=== PATIENT | male | born 1985 | race Two or more races ===

== ENCOUNTER 2023-01-20 13:03 | Outpatient (AMB) | payer BC, SELFPAY ==
--- NOTE | 2023-01-20 13:05 | A.OFFVIS_ITS ---
Intake Vital Signs 01/20/23 13:21 BP 130/78 Blood Pressure Location Lt radial Position Sitting Pulse 81 Pulse Source Pulse Oximeter Pulse Oximetry (%) 98 Oxygen Delivery Method Room Air Intake Visit Reasons: MAT Intake Intake Note: the patient is here as a mat intake Recruiter Required: No Allergies No Known Allergies Allergy (Verified 01/20/23 13:47) Do you need a note to return to daycare/school/sports/work: No HPI MAT Intake HPI Details Patient presents for intake and evaluation micodose induction six months ago from methadone 50mg 5 years on methadone Current suboxone dose 12mg BID Doing well with current suboxone dose No longer feeling lethargic Denies any side effects including constipation Recently moved here from [place] 2-3 weeks ago Living in [place] 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 Lives with partner and 2 pets In recovery for 6 years All other substances for 2 years Substance use history -Age 20 broke his arm and prescribed percocet -then began to misuse -sophomore year in college transitioned to morphine then to heroin -IVDU and freebasing -no overdose -no history of ATS admissions -no history of medical admissions related to Family History: father with AUD Medical History 0tonsillectomy broken skaphoid 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 No medications Borderline Personality Disorder Intermittent explosive disorder as a teenager therapy in methadone no medications no BH admissions last therapy visit 2 months ago Review of Systems Const Reports as per HPI and Reports no additional complaints Physical Exam Vital Signs: Last Vital Signs Pulse 81 01/20/23 13:21 BP 130/78 01/20/23 13:21 Pulse Ox 98 01/20/23 13:21 Oxygen Delivery Method Room Air 01/20/23 13:21 Const General: cooperative, healthy appearing and no acute distress Psych Appearance: grossly normal and well kempt Attitude: cooperative Thought process: Normal thought process present Thought content: Normal thought content present Insight: Good insight present (Psych) Judgement: Good judgement present (Psych) Results AMB 14 Panel Urine Drug Screen Urine Marijuana (THC) Negative Last Edit by Chastity Gordon CMA on 01/20/23 14:01 Urine Cocaine Negative Last Edit by Chastity Gordon CMA on 01/20/23 14:01 Urine Morphine Negative Last Edit by Chastity Gordon CMA on 01/20/23 14:01 Urine Methamphetamine Negative Last Edit by Chastity Gordon CMA on 01/20/23 14:01 Urine Amphetamine Negative Last Edit by Chastity Gordon CMA on 01/20/23 14:0 1 Urine Benzodiazepine Negative Last Edit by Chastity Gordon CMA on 01/20/23 14:01 Urine Barbiturates Negative Last Edit by Chastity Gordon CMA on 01/20/23 14: 01 Urine Methadone Negative Last Edit by Chastity Gordon CMA on 01/20/23 14:01 Urine Buprenorphine Positive Last Edit by Chastity Gordon CMA on 01/20/23 14 :01 Urine Tricyclic Antidepressant Negative Last Edit by Chastity Gordon CMA on 01/20/23 14:01 Urine MDMA Negative Last Edit by Chastity Gordon CMA on 01/20/23 14:01 Urine Oxycodone Negative Last Edit by Chastity Gordon CMA on 01/20/23 14:01 Urine Phencyclidine Negative Last Edit by Chastity Gordon CMA on 01/20/23 14 :01 Urine Propoxyphene Negative Last Edit by Chastity Gordon CMA on 01/20/23 14: 01 Results Reviewed Results Reviewed: Laboratory Last Values POC Urine Buprenorphine Positive 01/20/23 13:59 POC Urine Morphine Negative 01/20/23 13:59 POC Urine Oxycodone Negative 01/20/23 13:59 POC Urine Methadone Negative 01/20/23 13:59 POC Urine Propoxyphene Negative 01/20/23 13:59 POC Urine Barbiturates Negative 01/20/23 13:59 POC U Tricyclic Antidpr Negative 01/20/23 13:59 POC Urine PCP Negative 01/20/23 13:59 POC Ur Amphetamines Negative 01/20/23 13:59 POC Ur Methamphetamine Negative 01/20/23 13:59 POC Urine MDMA Negative 01/20/23 13:59 POC Ur Benzodiazepine Negative 01/20/23 13:59 POC Urine Cocaine Negative 01/20/23 13:59 POC Ur Marijuana (THC) Negative 01/20/23 13:59 Assessment & Plan Assessment & Plan (1) Other nursing home (current) drug therapy: Code(s): Z79.899 - Other long term care phlebotomist (current) drug therapy (2) Opioid use disorder, severe, in sustained remission: Code(s): F1. - Opioid dependence, in remission Plan: * Continue Suboxone at 12 mg b.i.d. * Labs ordered * Patient to follow-up 1 week Orders: Orders Comprehensive Met. Panel Today - Opioid dependence, in remission, Z79.899 - Other nursing home (current) drug therapy HIV Ab/Ag Today - Opioid dependence, in remission, Z79.899 - Other nursing home (current) drug therapy Hepatitis A,B,C Profile Today - Opioid dependence, in remission, Z79.899 - Other long term care phlebotomist (current) drug therapy AMB 14 Panel Urine Drug Screen 01/20/23 Z51.81 - Encounter for therapeutic drug level monitoring Medications: New buprenorphine-naloxone 12-3 mg (Suboxone) 1 film sublingual BID 15 ea 0RF Coding Level of Care Code New Pt Level 4 (95828) Diagnoses Other nursing home (current) drug therapy Z79.899 Opioid use disorder, severe, in sustained remission
[2023-01-20 13:21] VITALS: BP 130/78; PULSE 81; O2SAT 98
== END 2023-01-20 13:54 | disposition home or self-care (01) ==
LOC: HO.HCC 13:03
PROVIDERS: Visit Provider Nurse Practitioner Psychiatric/Mental Health
DX: F11.21 Opioid dependence, in remission (principal); Z79.899 Other long term (current) drug therapy
CPT/HCPCS: 99204

== ENCOUNTER → 2023-01-20 13:03 | Outpatient (BNVA) | payer BC, SELFPAY | PROVIDERS: Visit Provider Nurse Practitioner Psychiatric/Mental Health | DX: F11.20 Opioid dependence, uncomplicated (principal) | CPT/HCPCS: 80305 ==

== ENCOUNTER 2023-01-27 14:27 | Outpatient (REF) | payer BC, SELFPAY ==
[2023-01-27 15:49] LABS: Alanine Aminotransferase 35 U/L (0-40); Alkaline Phosphatase 71 U/L (39-117); Anion Gap 11 (12-20); Aspartate Amino Transferase 23 U/L (5-37); Bilirubin Total 0.4 mg/dL (0.0-1.0); Blood Urea Nitrogen 15 mg/dL (9-16); Calcium 10.2 mg/dL (8.4-10.2); Carbon Dioxide 27 mmol/L (22-29); Chloride 104 mmol/L (96-108); Estimated Glomerular Filt Rate > 60; Glucose Random 76 mg/dL (60-115); Potassium 4.1 mmol/L (3.3-5.1); Sodium 138 mmol/L (135-145); Total Protein 8.1 g/dL (6.5-8.0)
[2023-01-28 04:25] LABS: HBS Num1 13.51 mIU/mL (0-7.99); HBc Num1 0.08 S/CO (0.00-0.79); HBsAGNum1 0.55 S/CO (0.00-0.99); HIV AB/AG Nonreactive (Nonreactive); HIV Num 1 0.12 S/CO (0.00-0.99); Hepatitis A Antibody IgM 0.21 Index (0-0.79); Hepatitis B Core Antibody Nonreactive (Nonreactive); Hepatitis B Surface Antigen Negative (Negative); ~HepC Num1 0.09 S/CO (0.00-0.79); ~Hepatitis A Antibody IgM Nonreactive (Nonreactive); ~Hepatitis B Surface Antibody REACTIVE (Nonreactive); ~Hepatitis C Antibody Nonreactive (Nonreactive)
== END 2023-01-27 14:28 | disposition home or self-care (01) ==
LOC: HO.LAB 14:27
PROVIDERS: Visit Provider Nurse Practitioner Psychiatric/Mental Health
DX: F11.21 Opioid dependence, in remission (principal); Z79.899 Other long term (current) drug therapy
CPT/HCPCS: 36415; 80053; 80305; 86704; 86706; 86709; 86803; 87340; 87389

== ENCOUNTER 2023-01-27 14:50 | Outpatient (AMB) | payer BC, SELFPAY ==
[2023-01-27 14:58] VITALS: BP 126/78; PULSE 68; O2SAT 96
--- NOTE | 2023-01-27 14:58 | A.OFFVIS_ITS ---
Intake Vital Signs 01/27/23 14:58 BP 126/78 Blood Pressure Location Lt radial Position Sitting Pulse 68 Pulse Source Pulse Oximeter Pulse Oximetry (%) 96 Oxygen Delivery Method Room Air Intake Visit Reasons: MAT Visit Intake Note: The patient presents for a mat visit Lead Ramp Agent Required: No Allergies No Known Allergies Allergy (Verified 01/20/23 13:47) Do you need a note to return to daycare/school/sports/work: No HPI MAT Visit HPI Details Patient presents for follow-up. Currently prescribed Suboxone 12 mg b.i.d.. Doing well with current dose. Has been stable on this dose for quite some time. Settling in to living in [facility]. No questions or concerns at this time Review of Systems Const Reports as per HPI and Reports no additional complaints Physical Exam Vital Signs: Last Vital Signs Pulse 68 01/27/23 14:58 BP 126/78 01/27/23 14:58 Pulse Ox 96 01/27/23 14:58 Oxygen Delivery Method Room Air 01/27/23 14:58 Const General: cooperative and healthy appearing Psych Appearance: well kempt Speech and movement: Clear speech present Affect: normal affect Attitude: cooperative Thought process: Normal thought process present Thought content: Normal thought content present Insight: Good insight present (Psych) Judgement: Good judgement present (Psych) Results AMB 14 Panel Urine Drug Screen Urine Marijuana (THC) Negative Last Edit by Chastity Gordon CMA on 01/27/23 15:06 Urine Cocaine Negative Last Edit by Chastity Gordon CMA on 01/27/23 15:06 Urine Morphine Negative Last Edit by Chastity Gordon CMA on 01/27/23 15:06 Urine Methamphetamine Negative Last Edit by Chastity Gordon CMA on 01/27/23 15:06 Urine Amphetamine Negative Last Edit by Chastity Gordon CMA on 01/27/23 15:0 6 Urine Benzodiazepine Negative Last Edit by Chastity Gordon CMA on 01/27/23 15:06 Urine Barbiturates Negative Last Edit by Chastity Gordon CMA on 01/27/23 15: 06 Urine Methadone Negative Last Edit by Chastity Gordon CMA on 01/27/23 15:06 Urine Buprenorphine Positive Last Edit by Chastity Gordon CMA on 01/27/23 15 :06 Urine Tricyclic Antidepressant Negative Last Edit by Chastity Gordon CMA on 01/27/23 15:06 Urine MDMA Negative Last Edit by Chastity Gordno CMA on 01/27/23 15:06 Urine Oxycodone Negative Last Edit by Chastity Gordon CMA on 01/27/23 15:06 Urine Phencyclidine Negative Last Edit by Chastity Gordon CMA on 01/27/23 15 :06 Urine Propoxyphene Negative Last Edit by Chastity Gordon CMA on 01/27/23 15: 06 Results Reviewed Results Reviewed: Laboratory Last Values POC Urine Buprenorphine Positive 01/27/23 15:01 POC Urine Morphine Negative 01/27/23 15:01 POC Urine Oxycodone Negative 01/27/23 15:01 POC Urine Methadone Negative 01/27/23 15:01 POC Urine Propoxyphene Negative 01/27/23 15:01 POC Urine Barbiturates Negative 01/27/23 15:01 POC U Tricyclic Antidpr Negative 01/27/23 15:01 POC Urine PCP Negative 01/27/23 15:01 POC Ur Amphetamines Negative 01/27/23 15:01 POC Ur Methamphetamine Negative 01/27/23 15:01 POC Urine MDMA Negative 01/27/23 15:01 POC Ur Benzodiazepine Negative 01/27/23 15:01 POC Urine Cocaine Negative 01/27/23 15:01 POC Ur Marijuana (THC) Negative 01/27/23 15:01 Assessment & Plan Assessment & Plan (1) Opioid use disorder, severe, in sustained remission: Code(s): F11.21 - Opioid dependence, in remission Plan: * Continue Suboxone at current dose * Follow-up 3 weeks * Encouraged to call office should he need to be seen before that Orders: Orders AMB 14 Panel Urine Drug Screen Today Z51.81 - Encounter for therapeutic drug level monitoring Medications: Refilled buprenorphine-naloxone 12-3 mg (Suboxone) 1 film sublingual BID 42 ea 0RF Coding Level of Care Code Est Pt Level 3 (97742) Diagnoses Opioid use disorder, severe, in sustained remission F11.21
== END 2023-01-27 15:54 | disposition home or self-care (01) ==
LOC: HO.HCC 14:50
PROVIDERS: Visit Provider Nurse Practitioner Psychiatric/Mental Health
DX: F11.21 Opioid dependence, in remission (principal); Z51.81 Encounter for therapeutic drug level monitoring
CPT/HCPCS: 99213

== ENCOUNTER 2023-02-16 13:28 | Outpatient (AMB) | payer BC, SELFPAY ==
--- NOTE | 2023-02-16 13:37 | A.OFFVIS_ITS ---
Intake Vital Signs 02/16/23 13:41 BP 118/82 Blood Pressure Location Lt radial Position Sitting Pulse 77 Pulse Source Pulse Oximeter Pulse Oximetry (%) 98 Oxygen Delivery Method Room Air Intake Visit Reasons: MAT Visit Intake Note: The patient presents for a mat visit Urban Renewal Manager Required: No Allergies No Known Allergies Allergy (Verified 02/16/23 13:42) Do you need a note to return to daycare/school/sports/work: No HPI MAT Visit HPI Details Pt presents for OUD treatment follow up Currently being prescribed Suboxone 12mg BID Denies any side effects related to medication COntinues to do with recovery. Traveling to over the weekend Review of Systems Const Reports as per HPI Physical Exam Vital Signs: Last Vital Signs Pulse 77 02/16/23 13:41 BP 118/82 02/16/23 13:41 Pulse Ox 98 02/16/23 13:41 Oxygen Delivery Method Room Air 02/16/23 13:41 Const General: cooperative and healthy appearing Psych Appearance: well kempt Speech and movement: Clear speech present Affect: normal affect Attitude: cooperative Thought process: Normal thought process present Thought content: Normal thought content present Insight: Good insight present (Psych) Judgement: Good judgement present (Psych) Assessment & Plan Assessment & Plan (1) Opioid use disorder, severe, in sustained remission: Code(s): F11.21 - Opioid dependence, in remission Plan: * Continue Suboxone at current dose * Follow-up 4 weeks * Encouraged to call office should he need to be seen before that Medications: Refilled buprenorphine-naloxone 12-3 mg (Suboxone) 1 film sublingual BID 60 ea 0RF Coding Level of Care Code Est Pt Level 3 (63106) Diagnoses Opioid use disorder, severe, in sustained remission F11.21
[2023-02-16 13:41] VITALS: BP 118/82; PULSE 77; O2SAT 98
== END 2023-02-16 14:16 | disposition home or self-care (01) ==
LOC: HO.HCC 13:28
PROVIDERS: Visit Provider Nurse Practitioner Psychiatric/Mental Health
DX: F11.21 Opioid dependence, in remission (principal)
CPT/HCPCS: 99213

== ENCOUNTER → 2023-02-16 13:28 | Outpatient (BNVA) | payer BC, SELFPAY | PROVIDERS: Visit Provider Nurse Practitioner Psychiatric/Mental Health | DX: Z51.81 Encounter for therapeutic drug level monitoring (principal) ==

== ENCOUNTER 2023-03-14 10:23 | Outpatient (AMB) | payer BC, SELFPAY ==
--- NOTE | 2023-03-14 10:25 | MHC.OFFVIS ---
Intake Vital Signs 03/14/23 10:29 BP 118/70 Blood Pressure Location Lt radial Position Sitting Pulse 68 Pulse Source Pulse Oximeter Pulse Oximetry (%) 97 Oxygen Delivery Method Room Air Intake Visit Reasons: MAT Visit Intake Note: the patient presents for a mat visit Member Certification Manager Required: No Allergies No Known Allergies Allergy (Verified 03/14/23 10:29) Do you need a note to return to daycare/school/sports/work: No HPI MAT Visit HPI Details Patient presents for follow up Reports he has not been feeling well Had to take extra suboxone several times this month as he was experiencing what he felt to be withdrawal sx--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 No other issues related to medication or recovery overall. Review of Systems Const Reports as per HPI and Reports difficulty sleeping Physical Exam Vital Signs: Last Vital Signs Pulse 68 03/14/23 10:29 BP 118/70 03/14/23 10:29 Pulse Ox 97 03/14/23 10:29 Oxygen Delivery Method Room Air 03/14/23 10:29 Const General: cooperative and ill appearing Assessment & Plan Assessment & Plan (1) Opioid use disorder, severe, in sustained remission: Code(s): F11.21 - Opioid dependence, in remission Plan: Continue Suboxone at current dose, and added suboxone 4mg daily to use as needed Follow-up 4 weeks Encouraged to call office should he need to be seen before that Medications: New buprenorphine-naloxone 4-1 mg (Suboxone) in addition to 16mg --total of 20mg daily 1 film sublingual Q24H 30 ea 0RF Refilled buprenorphine-naloxone 12-3 mg (Suboxone) 1 film sublingual BID 60 ea 0RF Coding Level of Care Code Est Pt Level 4 (88584) Diagnoses Opioid use disorder, severe, in sustained remission F11.21
[2023-03-14 10:29] VITALS: BP 118/70; PULSE 68; O2SAT 97
== END 2023-03-14 11:04 | disposition home or self-care (01) ==
PROVIDERS: Visit Provider Nurse Practitioner Psychiatric/Mental Health
DX: F11.21 Opioid dependence, in remission (principal)
CPT/HCPCS: 99214

== ENCOUNTER → 2023-03-14 10:23 | Outpatient (BNVA) | payer BC, SELFPAY | PROVIDERS: Visit Provider Nurse Practitioner Psychiatric/Mental Health | DX: Z51.81 Encounter for therapeutic drug level monitoring (principal); F11.21 Opioid dependence, in remission ==

== ENCOUNTER 2023-04-10 09:07 | Outpatient (AMB) | payer BC, SELFPAY ==
[2023-04-10 09:17] VITALS: PULSE 62; O2SAT 96
--- NOTE | 2023-04-10 09:17 | MHC.AM.SUB ---
Intake Vital Signs 04/10/23 09:17 Blood Pressure Location Rt brachial Position Sitting Pulse 62 Pulse Source Pulse Oximeter Pulse Oximetry (%) 96 Oxygen Delivery Method Room Air Intake Visit Reasons: MAT Visit Allergies No Known Allergies Allergy (Verified 03/14/23 10:29) HPI MAT Visit HPI Details Pt presents for OUD treatment and follow up. States his new suboxone dose has been working well for him, denies concerns r/t dosing at this time. Denies any concerns about side effects. Says he transitioned from methadone to suboxone approximately 8 months ago, It's one of the best things that ever happened Says he feels as though he has more control over his life now. Parent and fiance are good supports for him. Has been keeping busy with work and his hobbies. Review of Systems Const Reports as per HPI Physical Exam Vital Signs: Last Vital Signs Pulse 62 04/10/23 09:17 Pulse Ox 96 04/10/23 09:17 Oxygen Delivery Method Room Air 04/10/23 09:17 Const General: cooperative, healthy appearing and no acute distress Resp Effort & Inspection: normal respiratory effort Skin General skin exam: no rashes or lesions noted Psych Appearance: grossly normal and well kempt Speech and movement: Normal speech and movement present Affect: normal affect Attitude: cooperative Insight: Good insight present (Psych) Judgement: Good judgement present (Psych) Assessment & Plan Assessment & Plan (1) Opioid use disorder, severe, in sustained remission: Code(s): F11.21 - Opioid dependence, in remission Plan: Continue suboxone at current dose. Discussed recovery support system. Follow up 4 weeks, encouraged to call [facility] with questions, concerns, or if he needs to be seen sooner. Coding Level of Care Code Est Pt Level 3 (25932) Diagnoses Opioid use disorder, severe, in sustained remission F11.21
== END 2023-04-10 09:42 | disposition home or self-care (01) ==
PROVIDERS: Visit Provider Nurse Practitioner Family
DX: F11.21 Opioid dependence, in remission (principal)
CPT/HCPCS: 99213

== ENCOUNTER → 2023-04-10 09:07 | Outpatient (BNVA) | payer BC, SELFPAY | PROVIDERS: Visit Provider Nurse Practitioner Family | DX: Z51.81 Encounter for therapeutic drug level monitoring (principal); F11.21 Opioid dependence, in remission ==

== ENCOUNTER 2023-05-08 09:07 | Outpatient (AMB) | payer BC, SELFPAY ==
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
[2023-05-08 09:17] VITALS: BP 110/70; PULSE 76; O2SAT 98
== END 2023-05-08 11:46 | disposition home or self-care (01) ==
PROVIDERS: Visit Provider Nurse Practitioner Family
DX: F11.21 Opioid dependence, in remission (principal)
CPT/HCPCS: 99213

== ENCOUNTER → 2023-05-08 09:07 | Outpatient (BNVA) | payer BC, SELFPAY | PROVIDERS: Visit Provider Nurse Practitioner Family | DX: Z51.81 Encounter for therapeutic drug level monitoring (principal); F11.21 Opioid dependence, in remission ==

== ENCOUNTER 2023-06-12 09:13 | Outpatient (AMB) | payer BC, SELFPAY ==
[2023-06-12 09:19] VITALS: BP 120/70; PULSE 63; RESP 19; O2SAT 96
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
== END 2023-06-12 10:11 | disposition home or self-care (01) ==
PROVIDERS: Visit Provider Nurse Practitioner Psychiatric/Mental Health
DX: F11.21 Opioid dependence, in remission (principal)
CPT/HCPCS: 99213

== ENCOUNTER → 2023-06-12 09:13 | Outpatient (BNVA) | payer BC, SELFPAY | PROVIDERS: Visit Provider Nurse Practitioner Psychiatric/Mental Health | DX: Z51.81 Encounter for therapeutic drug level monitoring (principal); F11.21 Opioid dependence, in remission ==

== ENCOUNTER 2023-07-10 09:28 | Outpatient (AMB) | payer BC, SELFPAY ==
--- NOTE | 2023-07-10 09:34 | A.OFFVISCC_ITS ---
Intake Vital Signs 07/10/23 09:38 BP 118/70 Blood Pressure Location Lt radial Position Sitting Pulse 65 Pulse Source Pulse Oximeter Pulse Oximetry (%) 98 Oxygen Delivery Method Room Air Intake Visit Reasons: MAT Visit Intake Note: The patient presents for a mat visit Graphics Coordinator Required: No Allergies No Known Allergies Allergy (Verified 07/10/23 09:38) Do you need a note to return to daycare/school/sports/work: No HPI MAT Visit HPI Details Patients presents for follow up Reporting he has been having increasing back pain --x rays completed at urgent care per julia boyce Colonoscopy scheduled for tomorrow --ordered by [email or web address] as patient is not established with PCP Unclear rationale for colonoscopy He reports he has been taking more suboxone than prescribed since it is the only thing has that has been providing any relief Patient aware that this is not recommended and will likely cause issues like running out early as he already experienced last week Patient expressing that this is the first time in 7-8 years that he has ever considered using. This copywriter encouraged patient to call office when theses types of challenges come up so that other potential solutions can be explored, including presenting to our ED for evaluation and pain management Review of Systems Const Reports as per HPI and Reports difficulty sleeping Psych Reports difficulty concentrating and Reports irritability Physical Exam Vital Signs: Last Vital Signs Pulse 65 07/10/23 09:38 BP 118/70 07/10/23 09:38 Pulse Ox 98 07/10/23 09:38 Oxygen Delivery Method Room Air 07/10/23 09:38 Const General: cooperative and tired appearing Nutritional Appearance: average body habitus Orientation/consciousness: patient oriented x3 Neuro General: patient oriented x3 Assessment & Plan Assessment & Plan (1) Opioid use disorder, severe, in sustained remission: Code(s): F11.21 - Opioid dependence, in remission Plan: - Continue Suboxone at current dose -follow up 4 weeks -relapse prevention discussion Coding Level of Care Code Est Pt Level 4 (63608) Diagnoses Opioid use disorder, severe, in sustained remission F11.21
[2023-07-10 09:38] VITALS: BP 118/70; PULSE 65; O2SAT 98
== END 2023-07-10 11:21 | disposition home or self-care (01) ==
PROVIDERS: Visit Provider Nurse Practitioner Psychiatric/Mental Health
DX: F11.21 Opioid dependence, in remission (principal)
CPT/HCPCS: 99214

== ENCOUNTER → 2023-07-10 09:28 | Outpatient (BNVA) | payer BC, SELFPAY | PROVIDERS: Visit Provider Nurse Practitioner Psychiatric/Mental Health | DX: Z51.81 Encounter for therapeutic drug level monitoring (principal); F11.21 Opioid dependence, in remission ==

== ENCOUNTER 2023-07-25 13:06 | Emergency (ER) | payer BC, SELFPAY ==
--- NOTE | ~2023-07-25 | XR_ITS ---
EXAMINATION: XR LUMBOSACRAL SPINE CLINICAL INFORMATION: Low back pain COMPARISON: None available. TECHNIQUE: Three views of the lumbosacral spine. FINDINGS: The vertebral bodies and posterior elements are normal. The disc spaces are preserved and the vertebral alignment is normal. The paraspinal soft tissues are normal. XR/XR lumbar spine 2-3V IMPRESSION: Unremarkable lumbar spine examination.
[2023-07-25 13:36] VITALS: BP 139/85; PULSE 60; RESP 18; TEMP 36.6; O2SAT 98; BMI 30.6
--- NOTE | 2023-07-25 13:40 | ED_ITS ---
HPI - General Adult General Chief complaint: Back Pain/Injury Stated complaint: Low Back Pain No Injury Time Seen by Provider: 07/25/23 16:27 Source: patient Mode of arrival: ambulatory Limitations: no limitations History of Present Illness HPI narrative: This is a 38-year-old male history of opiate use disorder in remission presenting to the emergency department for right lower back pain with radiation down right lower extremity since May intermittently. Pain worse with movement better at rest. Denies any associated trauma. Denies nausea, vomiting, abdominal pain, numbness, tingling, saddle paresthesias, urinary/bowel incontinence/retention, weakness, chest pain, shortness of breath, fevers and chills. Related Data Previous Rx's Medication Instructions Recorded buprenorphine 12 mg-naloxone 3 mg 1 film buccal BID #60 ea 07/08/23 sublingual film (Suboxone) buprenorphine 4 mg-naloxone 1 mg 1 film buccal Q24H #30 ea 07/08/23 sublingual film (Suboxone) ketorolac 10 mg tablet 10 mg PO TID PRN pain 5 days #15 07/25/23 tabs lidocaine 5 % topical patch 1 patch topical DAILY PRN pain #15 07/25/23 ea prednisone 20 mg tablet 40 mg (2 x 20 mg) PO DAILY 5 days 07/25/23 #10 tabs Allergies Allergy/AdvReac Type Severity Reaction Status Date / Time No Known Allergies Allergy Verified 07/25/23 13:36 Review of Systems Review of Systems: Constitutional : No Weight loss, No Fever, No Chills, ENT/Mouth : No Hearing loss, No Ear Pain, No Nasal Congestion, No Sinus Pain, No Hoarseness, No sore throat, No Rhinorrhea, No Swallowing Difficulty Cardiovascular : No Chest Pain, No SOB Respiratory : No Cough, No Dyspnea Gastrointestinal : No Nausea, No Vomiting, No Diarrhea, No abdominal Pain, No Hematochezia, No Melena Genitourinary : No Dysuria, No Urinary Frequency, No Hematuria, No Urinary Incontinence, Musculoskeletal : positive back pain Skin : No Skin Lesions, No rash Neuro : No Weakness, No Numbness, No Paresthesias, no loss of bowel or bladder incontinence, no saddle anesthesia Yes all other systems are reviewed and are negative [facility] Past Medical History Attestation statement: The following information was validated with the patient. Source: old records reviewed and nursing notes reviewed Social History Social History Advance Directives: No Advance Directives Information Provided: No Physical Exam ED Vital Signs: Vital Signs - 24 hr 07/25/23 13:36 07/25/23 16:57 Temperature 98 F 97.8 F Pulse Rate 60 57 Respiratory Rate 18 16 Blood Pressure 139/85 134/77 Pulse Oximetry 98 99 Oxygen Delivery Method Room Air Room Air BMI result Body Mass Index 30.6 vss Appearance: Alert.? Oriented X3.? No acute distress.? Head: Normocephalic, atraumatic, no step-offs or deformities Eyes: Pupils equal, round and reactive to light.? CVS: Normal heart rate and rhythm.? Pulses normal.? Respiratory: No respiratory distress.? Breath sounds normal.? Abdomen: Soft and nontender.? Skin: Skin warm and dry.? Normal skin color.? Normal skin turgor.? Extremities: No lower extremity edema.? No calf ttp. 5/5 strength to bilateral upper and lower extremities Back: No midline tenderness, no C-spine tenderness, full range of motion, no CVA tenderness bilaterally + R sided lumbar paraspinous muscle TTP throughout and into R buttocks. Neuro: Oriented X 3.? No motor deficit.? No sensory deficit. CN 2-12 intact . Ambulatory w/ steady gait normal coordination, no saddle parethesias. Course Course Course Narrative: RME: 38 yold male presents to the ED for right sided back pain radiating down right leg since may without any trauma. no abdominal pain, nuasa, vomitting, dysuria, or hematuria. right lumbar muslce tenderness. no spine tendneress. lumbar xray and UA ordered Reevaluation(s) Reevaluation #1: Unremarkable lumbar spine x-ray. Patient feeling well. Ambulatory without difficulty. Educated patient on diagnosis and treatment plan, answered all question, patient verbalizes understanding. At this time patient will be discharged home, advised to return with new or worsening symptoms. Educated on worrisome signs and symptoms and when to return. At this time I feel comfortable discharge home. Time: 17:51 Medications Administered Discontinued Medications Generic Name Dose Route Start Last Admin Trade Name Freq PRN Reason Stop Dose Admin Ketorolac Tromethamine 30 mg 07/25/23 16:43 07/25/23 16:52 Ketorolac Tromethamine 30 Mg/Ml Vial IM 07/25/23 16:44 30 mg ONCE ONE Administration Lidocaine 1 patch 07/25/23 16:43 07/25/23 16:52 Lidocaine 4 % Patch Adh..Patch TRANSDERMA 07/25/23 16:44 1 patch ONCE ONE Administration Protocol Medical Decision Making Medical Decision Making [facility] Narrative: 1635 38 year old male presents w/ right sided back pain w/ radiation to RLE above knee. No red flag sx. PE benign Likely lumbar radiculopathy vs sciatic vs muscle spasm. Unlikely cauda equina, epidural abscess, cord compression Plan- toradol, lidoderm, iamges ordered and pending. Differential Diagnosis Differential Diagnoses: The differential diagnosis associated with the presentation includes Admission/Observation Consideration of admission/observation: Escalation of care including admission/observation considered Lab Data Labs: Lab Results 07/25/23 Range/Units 15:10 Urine Color Yellow Urine Appearance Clear Urine pH 5.5 (5.0-9.0) Ur Specific [place] 1.015 (1.005-1.025) Urine Protein Negative (Neg-Trace) mg/dL Urine Glucose (UA) Negative (Negative) mg/dL Urine Ketones Negative (Negative) mg/dL Urine Blood Negative (Negative) Urine Nitrite Negative (Negative) Ur Leukocyte Esterase Negative (Negative) Urine Opiates Screen Not Detected (Not Detect) Urine Fentanyl Screen Not Detected (Not Detect) Ur Barbiturates Screen Not Detected (Not Detect) Ur Phencyclidine Scrn Not Detected (Not Detect) Ur Amphetamines Screen Not Detected (Not Detect) U Benzodiazepines Scrn Not Detected (Not Detect) Urine Cocaine Screen Not Detected (Not Detect) U Marijuana (THC) Screen Not Detected (Not Detect) Discharge Plan Discharge Clinical Impression: Lumbar radiculopathy Patient Disposition: Home, Self-Care Instructions: Acute Low Back Pain (ED), Lumbar Radiculopathy (ED), Back Pain (ED), Lower Back Exercises (ED) Additional Instructions: Take your medications as prescribed. If you were prescribed antibiotics today, it is important that you take your medication to their entirety, do not skip any doses, do not finish them early. Follow-up with your primary care provider this week. Return to the emergency department with new or worsening symptoms. Such as fevers, chills, chest pain, shortness of breath, nausea, vomiting, dizziness, headache, vision changes, lethargy In case of emergency call 911 Toradol has been sent to your pharmacy, you tolerated this well in the department. Please take this as prescribed do not take this with ibuprofen, or other NSAIDs, do not mix this with alcohol. Side effects of this medication including increased risk for bleeding and possible kidney injury. XR/XR lumbar spine 2-3V IMPRESSION: Unremarkable lumbar spine examination. Prescriptions: New prednisone 20 mg tablet 40 mg PO DAILY 5 Days Qty: 10 0RF ketorolac 10 mg tablet 10 mg PO TID PRN (Reason: pain) 5 Days Qty: 15 0RF lidocaine 5 % adhesive patch,medicated 1 patch topical DAILY PRN (Reason: pain) Qty: 15 0RF Rx Instructions: leave on most painful area for up to 12 hrs No Action buprenorphine-naloxone [Suboxone] 12-3 mg film 1 film buccal BID Qty: 60 0RF buprenorphine-naloxone [Suboxone] 4-1 mg film 1 film buccal Q24H Qty: 30 0RF Referrals: Physician,None [Primary Care Provider] - 2 days Stand Alone Forms: Work/School Release Interventions: ED Discharge Assessment Last Done: 07/25/23 17:35 Discharge Date/Time: 07/25/23 17:35
[2023-07-25 15:47] LABS: Appearance Urine Clear; Color Urine Yellow; Glucose Urine UA Negative (Negative); Leukocyte Esterase Urine Negative (Negative); Nitrite Urine Negative (Negative); PH 5.5 (5.0-9.0); Specific Gravity - Urine 1.015 (1.005-1.025); Urine Blood Negative (Negative); Urine Ketones Negative (Negative); Urine Protein Negative (Neg-Trace)
[2023-07-25] MEDS: Lidocaine 4 % Patch ADH..PATCH 1 PATCH TRANSDERMA (16:52)
[2023-07-25] MEDS: Ketorolac Tromethamine 30 MG/ML VIAL IM (16:52)
[2023-07-25 16:57] VITALS: BP 134/77; PULSE 57; RESP 16; TEMP 36.6; O2SAT 99
--- NOTE | 2023-07-25 16:58 | PC.NURSE ---
patient a&ox3, vss, pt c/o 01/12 lower back pain, pt medicated per order, call rios within reach, will continue to monitor
[2023-07-25 18:06] LABS: Amphetamine Screen Urine Not Detected (Not Detect); Barbiturates, Urine Not Detected (Not Detect); Benzodiazepines Screen Urine Not Detected (Not Detect); Cannabinoid Screen Urine Not Detected (Not Detect); Cocaine Screen Urine Not Detected (Not Detect); Fentanyl, urine Not Detected (Not Detect); Opiate Screen Urine Not Detected (Not Detect); Phencyclidine Screen Urine Not Detected (Not Detect)
== END 2023-07-25 17:35 | disposition home or self-care (01) ==
PROVIDERS: Physician Assistant; Emergency Provider Emergency Medicine
DX: M54.16 Radiculopathy, lumbar region (principal); Z79.899 Other long term (current) drug therapy
CPT/HCPCS: 72100; 80307; 81003; 96372; 99284; J1885

== ENCOUNTER 2023-08-02 14:51 | Outpatient (AMB) | payer BC, SELFPAY ==
--- NOTE | 2023-08-02 14:52 | A.OFFVISCC_ITS ---
Intake Vital Signs 08/02/23 14:59 BP 128/82 Blood Pressure Location Lt radial Position Sitting Pulse 86 Pulse Source Pulse Oximeter Pulse Oximetry (%) 97 Oxygen Delivery Method Room Air Intake Visit Reasons: MAT Intake Note: the patient presents for a mat visit Medic Technician Required: No Allergies No Known Allergies Allergy (Verified 08/02/23 14:55) Do you need a note to return to daycare/school/sports/work: No HPI MAT HPI Details Patient presents for follow up He appears anxious, diaphoretic. He states he used one bag today. He has run out of Suboxone. He states he has been taking it more than prescribed-- I've been taking an extra film every other day . Reporting his back pain has been has been the reason he has been taking more. He was seen in our ED last week and he reports that after that visit and with toradol, he felt great, everything was better . Patient has not been entirely forth coming for the last several weeks and had been calling incessantly looking to have medications refilled early--despite being informed that this was not possible. He denies any thoughts of using and dismisses any intention or plan to use--however when with RN he is very vocal about planning to use if medicaiton is not prescribed. After some discussion he expressed interest in Sublocade, and RN discussed with pharmacy and patient was able to get injeciton during this visit. He was apologetic and tearful. RN provided education about injection and side effects, monitoring etc. Prior to injection this pattern chart writer also provided education about injection, dosing, side effects, goals of treatment etc. Review of Systems Const Reports as per HPI, Reports body aches, Reports chills, Reports difficulty sleeping, Reports excessive sweating, Reports malaise and Reports poor appetite Endo Reports excessive sweating Physical Exam Vital Signs: Last Vital Signs Pulse 86 08/02/23 14:59 BP 128/82 08/02/23 14:59 Pulse Ox 97 08/02/23 14:59 Oxygen Delivery Method Room Air 08/02/23 14:59 Const General: anxious Orientation/consciousness: patient oriented x3 Limitations: no limitations Neuro General: patient oriented x3 Psych Speech and movement: Clear speech present and Pressured speech present Affect: Animated affect present, Anxious affect present and Depressed mood present Attitude: cooperative Thought process: Tangential thought process present Office Meds Sublocade 300 mg/1.5 mL solution,extended release subcutaneous syringe Performing Provider: Joyce Vargas CNP Performing Location: [facility] Administered by: Latonia Kwan RN on 08/02/23 16:38 Dose Route Admin Location Dispensed Lot Number Expiration Date [facility] Records Management Specialist 300 mg subcut RLQ 1.5 mL [id number] 06/05/24 [address]-1 [employer] Comments: Patient tolerated injection well with no stated or noted side effects. Patient was educated on side effects to look for and verbally agrees to call [facility] with comments or questions. Results AMB 14 Panel Urine Drug Screen Urine Marijuana (THC) Negative Last Edit by Chastity Gordon CMA on 08/02/23 15:03 Urine Cocaine Negative Last Edit by Chastity Gordon CMA on 08/02/23 15:03 Urine Morphine Negative Last Edit by Chastity Gordon CMA on 08/02/23 15:03 Urine Methamphetamine Negative Last Edit by Chastity Gordon CMA on 08/02/23 15:03 Urine Amphetamine Negative Last Edit by Chastity Gordon CMA on 08/02/23 15:0 3 Urine Benzodiazepine Negative Last Edit by Chastity Gordon CMA on 08/02/23 15:03 Urine Barbiturates Negative Last Edit by Chastity Gordon CMA on 08/02/23 15: 03 Urine Methadone Negative Last Edit by Chastity Gordon CMA on 08/02/23 15:03 Urine Buprenorphine Positive Last Edit by Chastity Gordon CMA on 08/02/23 15 :03 Urine Tricyclic Antidepressant Negative Last Edit by Chastity Gordon CMA on 08/02/23 15:03 Urine MDMA Negative Last Edit by Chastity Gordon CMA on 08/02/23 15:03 Urine Oxycodone Negative Last Edit by Chastity Gordon CMA on 08/02/23 15:03 Urine Phencyclidine Negative Last Edit by Chastity Gordon CMA on 08/02/23 15 :03 Urine Propoxyphene Negative Last Edit by Chastity Gordon CMA on 08/02/23 15: 03 Results Reviewed Results Reviewed: Laboratory Last Values POC Urine Buprenorphine Positive 08/02/23 14:55 POC Urine Morphine Negative 08/02/23 14:55 POC Urine Oxycodone Negative 08/02/23 14:55 POC Urine Methadone Negative 08/02/23 14:55 POC Urine Propoxyphene Negative 08/02/23 14:55 POC Urine Barbiturates Negative 08/02/23 14:55 POC U Tricyclic Antidpr Negative 08/02/23 14:55 POC Urine PCP Negative 08/02/23 14:55 POC Ur Amphetamines Negative 08/02/23 14:55 POC Ur Methamphetamine Negative 08/02/23 14:55 POC Urine MDMA Negative 08/02/23 14:55 POC Ur Benzodiazepine Negative 08/02/23 14:55 POC Urine Cocaine Negative 08/02/23 14:55 POC Ur Marijuana (THC) Negative 08/02/23 14:55 Assessment & Plan Assessment & Plan (1) Opioid use disorder: Code(s): F11.90 - Opioid use, unspecified, uncomplicated Plan: * patient tolerated injection * overdose prevention education provided by RN * supportive listening, reassurance and clear boundaries and limits (regarding prescribing suboxone) * RN to check in tomorrow * follow up one week * patient in office for over 2 hours while care coordination in process Orders: Orders AMB 14 Panel Urine Drug Screen Today Z51.81 - Encounter for therapeutic drug level monitoring AMB Buprenorphine Injection Today F11.21 - Opioid dependence, in remission Medications: New buprenorphine ER (Sublocade) 300 mg (1.5 mL) subcut .once every 28 days 1.5 mL 3RF Refilled ketorolac 10 mg PO TID 5 days PRN 15 tabs 0RF pain Coding Level of Care Code Est Pt Level 5 (00656) Diagnoses Opioid use disorder F11.90
[2023-08-02 14:59] VITALS: BP 128/82; PULSE 86; O2SAT 97
== END 2023-08-02 16:17 | disposition home or self-care (01) ==
PROVIDERS: Visit Provider Nurse Practitioner Psychiatric/Mental Health
DX: Z51.81 Encounter for therapeutic drug level monitoring (principal); F11.21 Opioid dependence, in remission; F11.90 Opioid use, unspecified, uncomplicated
CPT/HCPCS: 99215

== ENCOUNTER → 2023-08-02 14:51 | Outpatient (BNVA) | payer BC, SELFPAY | PROVIDERS: Visit Provider Nurse Practitioner Psychiatric/Mental Health | DX: F11.20 Opioid dependence, uncomplicated (principal) | CPT/HCPCS: 80305; 96372; Q9992 ==

== ENCOUNTER 2023-08-07 13:06 | Outpatient (AMB) | payer BC, SELFPAY ==
--- NOTE | 2023-08-07 13:07 | A.OFFVISCC_ITS ---
Intake Vital Signs 08/07/23 13:11 BP 130/60 Blood Pressure Location Rt radial Position Sitting Respiration 22 H Pulse 74 Pulse Source Pulse Oximeter Pulse Oximetry (%) 96 Intake Visit Reasons: MAT Visit Allergies No Known Allergies Allergy (Verified 08/02/23 14:55) HPI MAT Visit HPI Details Patient presents for follow up after having received 1st sublocade injection Reporting he has been tolerating medication --some tiredness in the morning Recently ill-- Denies any constipation Denies any cravings Review of Systems Const Reports as per HPI and Reports no additional complaints Physical Exam Vital Signs: Last Vital Signs Pulse 74 08/07/23 13:11 Resp 22 H 08/07/23 13:11 BP 130/60 08/07/23 13:11 Pulse Ox 96 08/07/23 13:11 Const General: cooperative, healthy appearing and no acute distress Assessment & Plan Assessment & Plan (1) Opioid use disorder: Code(s): F11.90 - Opioid use, unspecified, uncomplicated Plan: * relapse prevention discussion * follow up 3 weeks for injection * encouraged to call office prior to next appt if needed Coding Level of Care Code Est Pt Level 3 (13262) Diagnoses Opioid use disorder F11.90
[2023-08-07 13:11] VITALS: BP 130/60; PULSE 74; RESP 22; O2SAT 96
== END 2023-08-07 14:16 | disposition home or self-care (01) ==
PROVIDERS: Visit Provider Nurse Practitioner Psychiatric/Mental Health
DX: F11.90 Opioid use, unspecified, uncomplicated (principal)
CPT/HCPCS: 99213

== ENCOUNTER → 2023-08-07 13:06 | Outpatient (BNVA) | payer BC, SELFPAY | PROVIDERS: Visit Provider Nurse Practitioner Psychiatric/Mental Health | DX: Z51.81 Encounter for therapeutic drug level monitoring (principal); F11.21 Opioid dependence, in remission ==

== ENCOUNTER 2023-09-11 10:03 | Outpatient (AMB) | payer BC, SELFPAY ==
--- NOTE | 2023-09-11 10:09 | AM.OFFVISNUR ---
Intake Vital Signs 09/11/23 10:13 BP 120/70 Blood Pressure Location Rt radial Position Sitting Respiration 20 Pulse 88 Pulse Source Pulse Oximeter Pulse Oximetry (%) 98 Oxygen Delivery Method Room Air Intake Visit Reasons: MAT Allergies No Known Allergies Allergy (Verified 08/02/23 14:55) Nursing Note Patient to office for injection, he was in good spirits, smiling, speaking in clear/full sentences. Injection given in the LLQ, tolerated without any signs or symptoms of complication. Patient agrees to call [facility] with any questions or concerns. Office Meds Sublocade 300 mg/1.5 mL solution,extended release subcutaneous syringe Performing Provider: Rosy David NP Performing Location: [facility] Administered by: Latonia Kwan RN on 09/11/23 10:15 Dose Route Admin Location Dispensed Lot Number Expiration Date [facility] Threading Machine Setter 300 mg subcut 1.5 mL [id number] 08/03/24 [address]-7 [employer]. Coding Assessment & Plan Assessment & Plan Orders: Orders AMB Buprenorphine Injection - Patient Supplied Today F11.90 - Opioid use, unspecified, uncomplicated
[2023-09-11 10:13] VITALS: BP 120/70; PULSE 88; RESP 20; O2SAT 98
== END 2023-09-11 10:53 | disposition home or self-care (01) ==
DX: F11.90 Opioid use, unspecified, uncomplicated (principal)

== ENCOUNTER → 2023-09-11 10:03 | Outpatient (BNVA) | payer BC, SELFPAY | DX: F11.90 Opioid use, unspecified, uncomplicated (principal) | CPT/HCPCS: 96372; Q9992 ==

== ENCOUNTER 2023-10-09 09:03 | Outpatient (AMB) | payer BC, SELFPAY ==
[2023-10-09 09:05] VITALS: BP 140/90; PULSE 77; O2SAT 99
--- NOTE | 2023-10-09 09:05 | AM.OFFVISNUR ---
Intake Vital Signs 10/09/23 09:05 BP 140/90 H Blood Pressure Location Lt brachial Position Sitting Pulse 77 Pulse Source Pulse Oximeter Pulse Oximetry (%) 99 Oxygen Delivery Method Room Air Intake Visit Reasons: Sub Inj Allergies No Known Allergies Allergy (Verified 10/09/23 09:05) Nursing Note Patient to clinic today for injection, he is smiling, speaking in clear/full sentences, states injection is working well. He was excited to talk about his upcoming wedding in january, endorces that he is working out more, states I really want to be healthy . Will follow up in 4 weeks. Office Meds Sublocade 300 mg/1.5 mL solution,extended release subcutaneous syringe Performing Provider: Joyce Vargas CNP Performing Location: [facility] Administered by: Latonia Kwan RN on 10/09/23 09:37 Dose Route Admin Location Dispensed Lot Number Expiration Date [facility] Teaching Supervisor 300 mg subcut RUQ 1.5 mL [id number] 11/03/04 [address]-8 [employer]. Coding Assessment & Plan Assessment & Plan Orders: Orders AMB Buprenorphine Injection - Patient Supplied Today F11.21 - Opioid dependence, in remission
== END 2023-10-09 09:22 | disposition home or self-care (01) ==
DX: F11.21 Opioid dependence, in remission (principal)

== ENCOUNTER → 2023-10-09 09:03 | Outpatient (BNVA) | payer BC, SELFPAY | DX: F11.20 Opioid dependence, uncomplicated (principal) | CPT/HCPCS: 96372; Q9992 ==

== ENCOUNTER 2023-11-08 14:30 | Outpatient (AMB) | payer BC, SELFPAY ==
[2023-11-08 14:33] VITALS: BP 138/84; PULSE 67; O2SAT 97
--- NOTE | 2023-11-08 14:33 | AM.OFFVISNUR ---
Intake Vital Signs 11/08/23 14:33 BP 138/84 Blood Pressure Location Lt brachial Position Sitting Pulse 67 Pulse Source Pulse Oximeter Pulse Oximetry (%) 97 Oxygen Delivery Method Room Air Intake Visit Reasons: Sub Inj Allergies No Known Allergies Allergy (Verified 10/09/23 09:05) Nursing Note Patient to clinic for injection today, A+O x4, speaking in clear/full sentences. Denies any complications from previous injection, states recovery is going ok he was very quiet today which is unusual, he did not want to address it when asked if things were ok Im ok really . Verbally agrees to call [facility] with any concerns or questions. Office Meds Sublocade 300 mg/1.5 mL solution,extended release subcutaneous syringe Performing Provider: Joyce Vargas CNP Performing Location: [facility] Administered by: Latonia Kwan RN on 11/09/23 09:22 Dose Route Admin Location Dispensed Lot Number Expiration Date [employer] 300 mg subcut 1.5 mL [id number] 11/03/25 [address]-5 [employer]. Comments: No noted or stated complications with injection or site, pt verbally understands to call [facility] with any questions or concerns. Coding Assessment & Plan Assessment & Plan Orders: Orders AMB Buprenorphine Injection - Patient Supplied 11/08/23 F11.90 - Opioid use, unspecified, uncomplicated Medications: New Sublocade ER (buprenorphine) 300 mg (1.5 mL) subcut ONCE 1.5 mL 0RF NS F11.90 - Opioid use, unspecified, uncomplicated
== END 2023-11-08 14:56 | disposition home or self-care (01) ==
DX: F11.90 Opioid use, unspecified, uncomplicated (principal)

== ENCOUNTER → 2023-11-08 14:30 | Outpatient (BNVA) | payer BC, SELFPAY | DX: F11.20 Opioid dependence, uncomplicated (principal); Z51.81 Encounter for therapeutic drug level monitoring | CPT/HCPCS: 96372; Q9992 ==

== ENCOUNTER → 2023-12-08 13:01 | Outpatient (BNVA) | payer BC, SELFPAY | DX: F11.21 Opioid dependence, in remission (principal) | CPT/HCPCS: 96372; Q9992 ==

== ENCOUNTER 2024-01-01 09:01 | Outpatient (AMB) | payer BC, SELFPAY ==
--- NOTE | 2024-01-01 09:16 | A.OFFVISCC_ITS ---
Vital Signs 01/01/24 09:25 BP 148/92 H Blood Pressure Location Lt brachial Position Sitting Pulse 55 Pulse Source Pulse Oximeter Pulse Oximetry (%) 98 Oxygen Delivery Method Room Air Intake Visit Reasons: MAT Allergies No Known Allergies Allergy (Verified 10/09/23 09:05) HPI HPI MAT: Details: patient presents for follow up sublocade injection due next week reports doing well with injection and very pleased he transitioned to this no side effects or concerns related to medication Review of Systems Const Reports as per HPI and Reports no additional complaints Physical Exam Vital Signs: Last Vital Signs Pulse 55 01/01/24 09:25 BP 148/92 H 01/01/24 09:25 Pulse Ox 98 01/01/24 09:25 Oxygen Delivery Method Room Air 01/01/24 09:25 Const General: cooperative, healthy appearing and well groomed Nutritional Appearance: average body habitus Orientation/consciousness: patient oriented x3 Limitations: no limitations Neuro General: patient oriented x3 Assessment & Plan Assessment & Plan (1) Opioid use disorder: Code(s): F11.90 - Opioid use, unspecified, uncomplicated Category: Medical Plan: * sublocade next week * follow up with provider in 3 months * encouraged to call office with any questions or concerns
[2024-01-01 09:25] VITALS: BP 148/92; PULSE 55; O2SAT 98
== END 2024-01-01 09:49 | disposition home or self-care (01) ==
PROVIDERS: Visit Provider Nurse Practitioner Psychiatric/Mental Health
DX: F11.90 Opioid use, unspecified, uncomplicated (principal)
CPT/HCPCS: 99213

== ENCOUNTER → 2024-01-01 09:01 | Outpatient (BNVA) | payer BC, SELFPAY | PROVIDERS: Visit Provider Nurse Practitioner Psychiatric/Mental Health ==

== ENCOUNTER 2024-01-16 16:19 | Outpatient (AMB) | payer BC, SELFPAY ==
--- NOTE | 2024-01-17 09:11 | AM.OFFVISNUR ---
Intake Visit Reasons: Sublocade injection Allergies No Known Allergies Allergy (Verified 10/09/23 09:05) Nursing Note Patient Presents for sublocade Injection. Current Dose 300mg. Given in the LLQ with no noted or stated complications. Denies any issues with previous injection. Denies symptoms, and denies any break through cravings. Last appt with provider was last month in December , will follow up with RN in 4 weeks for injection. Will need to see provider for check in March . Office Meds Sublocade 300 mg/1.5 mL solution,extended release subcutaneous syringe Performing Provider: Joyce Vargas CNP Performing Location: [facility] Administered by: Latonia Kwan RN on 01/16/24 10:11 Dose Route Admin Location Dispensed Lot Number Expiration Date [facility] Cigar Packer 300 mg subcut LLQ 1.5 mL [id number] 03/05/25 [address]-2 [employer]. Assessment & Plan Assessment & Plan Orders: Orders AMB Buprenorphine Injection - Patient Supplied 01/16/24 F11.90 - Opioid use, unspecified, uncomplicated Medications: New Sublocade ER (buprenorphine) 300 mg (1.5 mL) subcut ONCE 1.5 mL 0RF NS F11.90 - Opioid use, unspecified, uncomplicated
== END 2024-01-16 16:53 | disposition home or self-care (01) ==
DX: F11.90 Opioid use, unspecified, uncomplicated (principal)

== ENCOUNTER → 2024-01-16 16:19 | Outpatient (BNVA) | payer BC, SELFPAY | DX: F11.90 Opioid use, unspecified, uncomplicated (principal) | CPT/HCPCS: 96372; Q9992 ==

== ENCOUNTER 2024-03-04 09:51 | Outpatient (AMB) | payer BC, SELFPAY ==
--- NOTE | 2024-03-04 11:00 | AM.OFFVISNUR ---
Intake Visit Reasons: Injection Allergies No Known Allergies Allergy (Verified 10/09/23 09:05) Nursing Note Patient Presents for Sublocade Injection. Current Dose is 300mg. Given in the LLQ with no noted or stated complications Denies any issues with previous injection. Denies symptoms, and denies any break through cravings. Will follow up with RN in 4 weeks for injection. Will need to see provider for check in, in April . Patient given lab slip and reminded he needs labs drawn prior to next visit, he verbally agrees. Office Meds Sublocade 300 mg/1.5 mL solution,extended release subcutaneous syringe Performing Provider: Joyce Vargas CNP Performing Location: [facility] Administered by: Latonia Kwan RN on 03/04/24 11:02 Dose Route Admin Location Dispensed Lot Number Expiration Date [facility] Networks Software Consultant 300 mg subcut LLQ 1.5 mL [id number] 03/05/25 [address]-4 [employer]. Assessment & Plan Assessment & Plan Orders: Orders AMB Buprenorphine Injection Today F11.90 - Opioid use, unspecified, uncomplicated Liver Panel Today Z79.899 - Other [facility] (current) drug therapy Medications: New Sublocade ER (buprenorphine) 300 mg (1.5 mL) subcut ONCE 1.5 mL 0RF NS F11.90 - Opioid use, unspecified, uncomplicated Refilled buprenorphine ER (Sublocade) 300 mg (1.5 mL) subcut .once every 28 days 1.5 mL 0RF
== END 2024-03-04 10:10 | disposition home or self-care (01) ==
DX: F11.90 Opioid use, unspecified, uncomplicated (principal)

== ENCOUNTER → 2024-03-04 09:51 | Outpatient (BNVA) | payer BC, SELFPAY | DX: F11.90 Opioid use, unspecified, uncomplicated (principal) | CPT/HCPCS: 96372; Q9992 ==

== ENCOUNTER 2024-04-01 10:00 | Outpatient (AMB) | payer BC, SELFPAY ==
--- NOTE | 2024-04-01 10:50 | AM.OFFVISNUR ---
Intake Visit Reasons: Sublocade Injection Allergies No Known Allergies Allergy (Verified 10/09/23 09:05) Nursing Note Patient Presents for sublocade Injection. Current Dose 300mg . Given in RLQ the with no noted or stated complications. Denies any issues with previous injection. Denies symptoms, and denies any break through cravings. Will follow up with RN in 4 weeks for injection. Will need to see provider for check in May Patient acknowledges that he needs labs done and verbally agrees to have them drawn prior to next week. Office Meds Sublocade 300 mg/1.5 mL solution,extended release subcutaneous syringe Performing Provider: Joyce Vargas CNP Performing Location: [facility] Administered by: Latonia Kwan RN on 04/01/24 10:53 Dose Route Admin Location Dispensed Lot Number Expiration Date [facility] Drug Abuse Resistance Education Officer 300 mg subcut rlq 1.5 mL [id number] [employer]. Assessment & Plan Assessment & Plan Orders: Orders AMB Buprenorphine Injection Today F11.90 - Opioid use, unspecified, uncomplicated Medications: Refilled buprenorphine ER (Sublocade) 300 mg (1.5 mL) subcut .once every 28 days 1.5 mL 0RF
== END 2024-04-01 10:30 ==
DX: F11.90 Opioid use, unspecified, uncomplicated (principal)

== ENCOUNTER → 2024-04-01 10:00 | Outpatient (BNVA) | payer BC, SELFPAY | DX: F11.90 Opioid use, unspecified, uncomplicated (principal) | CPT/HCPCS: 96372; Q9992 ==

== ENCOUNTER 2024-05-06 10:16 | Outpatient (AMB) | payer BC, SELFPAY ==
--- NOTE | 2024-05-06 10:15 | AM.OFFVISNUR ---
Intake Visit Reasons: Injection Allergies No Known Allergies Allergy (Verified 10/09/23 09:05) Nursing Note Patient Presents for Sublcoade Injection. Current Dose 300mg . Given in the with no noted or stated complications. Denies any issues with previous injection. Patient had gone on vacation and requested strips to take with him, he states he only recieved 5 and felt really crappy for 3 days without anything . Will follow up with RN in 4 weeks for injection. Will need to see provider for check in next visit . Office Meds Sublocade 300 mg/1.5 mL solution,extended release subcutaneous syringe Performing Provider: Joyce Vargas CNP Performing Location: [facility] Administered by: Latonia Kwan RN on 05/06/24 10:16 Dose Route Admin Location Dispensed Lot Number Expiration Date [facility] Operations Clerk 300 mg subcut LUQ 1.5 mL [id number] 04/05/25 [address]-3 [employer]. Assessment & Plan Assessment & Plan Orders: Orders AMB Buprenorphine Injection Today F11.90 - Opioid use, unspecified, uncomplicated Medications: New Sublocade ER (buprenorphine) 300 mg (1.5 mL) subcut ONCE 1.5 mL 0RF NS F11.90 - Opioid use, unspecified, uncomplicated Refilled buprenorphine ER (Sublocade) 300 mg (1.5 mL) subcut .once every 28 days 1.5 mL 0RF
== END 2024-05-06 13:36 | disposition home or self-care (01) ==
DX: F11.90 Opioid use, unspecified, uncomplicated (principal)

== ENCOUNTER → 2024-05-06 10:16 | Outpatient (BNVA) | payer BC, SELFPAY | DX: F11.90 Opioid use, unspecified, uncomplicated (principal); Z51.81 Encounter for therapeutic drug level monitoring | CPT/HCPCS: 96372; Q9992 ==

== ENCOUNTER 2024-06-07 10:02 | Outpatient (AMB) | payer BC, SELFPAY ==
[2024-06-07 10:12] VITALS: BP 120/70; PULSE 86; O2SAT 97
--- NOTE | 2024-06-07 10:12 | A.OFFVISCC_ITS ---
Vital Signs 06/07/24 10:12 BP 120/70 Blood Pressure Location Lt brachial Position Sitting Pulse 86 Pulse Source Pulse Oximeter Pulse Oximetry (%) 97 Oxygen Delivery Method Room Air Intake Visit Reasons: MAT/ Sub Injection Allergies No Known Allergies Allergy (Verified 10/09/23 09:05) HPI HPI MAT/ Sub Injection: Details: Patient presents for follow up Currently receiving Sublocade 300mg q monthly Takes 1 film to help sleep closer to when next injection is due --takes the film in the afternoon 5-7 hours of sleep normally still working at [employer] and his other job considering going to [employer] Review [employer] Systems Const Reports as per HPI and Reports no additional complaints Physical Exam Vital Signs: Last Vital Signs Pulse 86 06/07/24 10:12 BP 120/70 06/07/24 10:12 Pulse Ox 97 06/07/24 10:12 Oxygen Delivery Method Room Air 06/07/24 10:12 Const General: cooperative, healthy appearing and well groomed Nutritional Appearance: average body habitus Orientation/consciousness: patient oriented x3 Limitations: no limitations Neuro General: patient oriented x3 Psych Appearance: well kempt Speech and movement: Normal speech and movement present Affect: normal affect Attitude: cooperative Thought process: Normal thought process present Thought content: Normal thought content present Insight: Good insight present (Psych) Judgement: Good judgement present (Psych) Office Meds Sublocade 300 mg/1.5 mL solution,extended release subcutaneous syringe Performing Provider: Joyce Vargas CNP Performing Location: [facility] Administered by: Latonia Kwan RN on 06/07/24 10:23 Dose Route Admin Location Dispensed Lot Number Expiration Date [facility] Refrigerator Room Clerk 300 mg subcut RLQ 1.5 mL [id number] 05/05/25 [address]-1 [employer]. Comments: Pt denies any signs or symptoms from previous injection site, and verbally understands to call [facility] with any concerns or questions. Assessment & Plan Assessment & Plan (1) Opioid use disorder, severe, in sustained remission: Code(s): F11.21 - Opioid dependence, in remission Category: Medical Plan: * discussed not using suboxone to address sleep--patient will try benadryl on days he feels he can;t sleep * no change to dose until he has one to two months of no extra suboxone taken * follow up one month for injection * reminded to complete labwork Orders: Orders AMB Buprenorphine Injection Today F11.90 - Opioid use, unspecified, uncomplicated Medications: Refilled buprenorphine ER (Sublocade) 300 mg (1.5 mL) subcut .once every 28 days 1.5 mL 0RF
== END 2024-06-07 10:51 | disposition home or self-care (01) ==
PROVIDERS: Visit Provider Nurse Practitioner Psychiatric/Mental Health
DX: F11.21 Opioid dependence, in remission (principal); F11.90 Opioid use, unspecified, uncomplicated
CPT/HCPCS: 99214

== ENCOUNTER → 2024-06-07 10:02 | Outpatient (BNVA) | payer BC, SELFPAY | PROVIDERS: Visit Provider Nurse Practitioner Psychiatric/Mental Health | DX: F11.21 Opioid dependence, in remission (principal) | CPT/HCPCS: 96372; Q9992 ==

== ENCOUNTER 2024-07-09 10:03 | Outpatient (AMB) | payer BC, SELFPAY ==
--- NOTE | 2024-07-09 10:11 | AM.OFFVISNUR ---
Vital Signs 07/09/24 10:25 BP 150/80 H Blood Pressure Location Rt brachial Position Sitting Respiration 19 Pulse 98 Pulse Source Pulse Oximeter Pulse Oximetry (%) 98 Intake Visit Reasons: Sub Injection Allergies No Known Allergies Allergy (Verified 10/09/23 09:05) Nursing Note Patient Presents for sublocade Injection. Current Dose 300mg. Given in the LLQ with no noted or stated complications. Denies any issues with previous injection. Denies symptoms, and denies any break through cravings. Last appt with provider was last month in June , will follow up with RN in 4 weeks for injection. Will need to see provider for check in August . Patient states this is his first month that he did not need any suboxone scripts towards the end of the month. Asked me to let provider know he wants to try 100mg next month. I forwarded this to Joyce Vargas APRN. Office Meds Sublocade 300 mg/1.5 mL solution,extended release subcutaneous syringe Performing Provider: Joyce Vargas CNP Performing Location: [facility] Administered by: Latonia Kwan RN on 07/09/24 14:21 Dose Route Admin Location Dispensed Lot Number Expiration Date [facility] Roll Picker 300 mg subcut LLQ 1.5 mL [id number] 04/05/25 [address]-1 [employer]. Assessment & Plan Assessment & Plan Orders: Orders AMB Buprenorphine Injection Today F11.90 - Opioid use, unspecified, uncomplicated Coding
[2024-07-09 10:25] VITALS: BP 150/80; PULSE 98; RESP 19; O2SAT 98
== END 2024-07-09 10:26 | disposition home or self-care (01) ==
DX: F11.90 Opioid use, unspecified, uncomplicated (principal)

== ENCOUNTER → 2024-07-09 10:03 | Outpatient (BNVA) | payer BC, SELFPAY | DX: F11.90 Opioid use, unspecified, uncomplicated (principal); Z51.81 Encounter for therapeutic drug level monitoring | CPT/HCPCS: 96372; Q9992 ==

== ENCOUNTER 2024-08-07 13:03 | Outpatient (AMB) | payer BC, SELFPAY ==
--- NOTE | 2024-08-07 13:12 | AM.OFFVISNUR ---
Vital Signs 08/09/24 13:13 BP 130/75 Blood Pressure Location Rt radial Position Sitting Respiration 20 Pulse 88 Pulse Source Pulse Oximeter Pulse Oximetry (%) 99 Oxygen Delivery Method Room Air Intake Visit Reasons: Sub Injection Allergies No Known Allergies Allergy (Verified 10/09/23 09:05) Nursing Note Patient Presents for Sublocade Injection. Current Dose 100mg . Given in the with RLQ no noted or stated complication. Denies any issues with previous injection. Denies symptoms, and denies any break through cravings. Office Meds Sublocade 100 mg/0.5 mL solution,extended release subcutaneous syringe Performing Provider: Joyce Vargas CNP Performing Location: [facility] Administered by: Latonia Kwan RN on 08/07/24 13:11 Dose Route Admin Location Dispensed Lot Number Expiration Date [facility] Warehouse Material Handler 100 mg subcut RLQ 0.5 mL [id number] 07/06/24 [address]-7 [employer]. Assessment & Plan Assessment & Plan Orders: Orders AMB Buprenorphine Injection 08/07/24 F11.90 - Opioid use, unspecified, uncomplicated Medications: New Sublocade ER (buprenorphine) 100 mg (0.5 mL) subcut ONCE 0.5 mL 0RF NS F11.90 - Opioid use, unspecified, uncomplicated Coding
[2024-08-09 13:13] VITALS: BP 130/75; PULSE 88; RESP 20; O2SAT 99
== END 2024-08-07 13:48 | disposition home or self-care (01) ==
DX: F11.90 Opioid use, unspecified, uncomplicated (principal)

== ENCOUNTER → 2024-08-07 13:03 | Outpatient (BNVA) | payer BC, SELFPAY | DX: F11.90 Opioid use, unspecified, uncomplicated (principal) | CPT/HCPCS: 96372; Q9991 ==

== ENCOUNTER 2024-09-03 12:55 | Outpatient (AMB) | payer BC, SELFPAY ==
[2024-09-03 13:01] VITALS: BP 122/80; PULSE 58; O2SAT 98; BMI 30.7
--- NOTE | 2024-09-03 13:01 | AM.OFFVISNUR ---
Vital Signs 09/03/24 13:01 Height 6 ft 4 in Weight 252 lb BMI 30.7 BP 122/80 Pulse 58 Pulse Oximetry (%) 98 Intake Visit Reasons: sub injection Allergies No Known Allergies Allergy (Verified 10/09/23 09:05) Coding
--- NOTE | 2024-09-03 14:02 | AM.OFFVISNUR ---
Vital Signs 09/03/24 13:01 Height 6 ft 4 in Weight 252 lb BMI 30.7 BP 122/80 Pulse 58 Pulse Oximetry (%) 98 Intake Visit Reasons: sub injection Allergies No Known Allergies Allergy (Verified 10/09/23 09:05) Office Meds Sublocade 300 mg/1.5 mL solution,extended release subcutaneous syringe Performing Provider: Mia Rivers MD Performing Location: [facility] Administered by: Latonia Kwan RN on 09/03/24 14:06 Dose Route Admin Location Dispensed Lot Number Expiration Date [facility] Military Pay Clerk 300 mg subcut RLQ 1.5 mL [id number] 05/05/25 [address]-2 [employer]. Assessment & Plan Assessment & Plan Orders: Orders AMB Buprenorphine Injection Today F11.90 - Opioid use, unspecified, uncomplicated Medications: New Sublocade ER (buprenorphine) 300 mg (1.5 mL) subcut ONCE 1.5 mL 0RF NS F11.90 - Opioid use, unspecified, uncomplicated Coding
== END 2024-09-03 13:24 | disposition home or self-care (01) ==
LOC: HO.HCC 12:55
DX: F11.90 Opioid use, unspecified, uncomplicated (principal)

== ENCOUNTER → 2024-09-03 12:55 | Outpatient (BNVA) | payer BC, SELFPAY | DX: F11.90 Opioid use, unspecified, uncomplicated (principal) | CPT/HCPCS: 96372; Q9992 ==

== ENCOUNTER 2024-09-30 11:33 | Outpatient (AMB) | payer BC, SELFPAY ==
--- NOTE | 2024-09-30 12:47 | MHC.AM.SUB ---
Intake Visit Reasons: Sub injection Allergies No Known Allergies Allergy (Verified 10/09/23 09:05) HPI Comments Details: He presents for Sublocade injection and hasnt been taking extra strips but once. He has no complaints. He says the shot is very painful but still wants to get Physical Exam Const General: cooperative Office Meds Sublocade 300 mg/1.5 mL solution,extended release subcutaneous syringe Performing Provider: Mia Rivers MD Performing Location: [facility] Administered by: Mia Rivers MD on 09/30/24 12:53 Dose Route Admin Location Dispensed Lot Number Expiration Date [facility] Bakery Team Leader 300 mg subcut right abdomen 1.5 mL [id number] 05/05/25 [address]-2 [employer]. Assessment & Plan Assessment & Plan (1) Opioid use disorder: Comment: Patient still wants to get shot He was moving from sitting up to laying down position while administering Code(s): F11.90 - Opioid use, unspecified, uncomplicated Category: Medical Plan: Continue Sublocade 300 mg SQ at this time as occasionally uses strip and patient thinks 100 may not be enough but has large areas of injection site depots and body habitus not optimal for administration of shot with skin areas lying over other areas. Will discuss at next visit further plans. Orders: Orders AMB Buprenorphine Injection - Patient Supplied Today F11.90 - Opioid use, unspecified, uncomplicated
== END 2024-09-30 11:57 | disposition home or self-care (01) ==
LOC: HO.HCC 11:34
PROVIDERS: Visit Provider Internal Medicine
DX: F11.90 Opioid use, unspecified, uncomplicated (principal)
CPT/HCPCS: 99213

== ENCOUNTER → 2024-09-30 11:33 | Outpatient (BNVA) | payer BC, SELFPAY | PROVIDERS: Visit Provider Internal Medicine | DX: F11.90 Opioid use, unspecified, uncomplicated (principal) | CPT/HCPCS: 96372; Q9992 ==

== ENCOUNTER 2024-11-07 15:06 | Outpatient (AMB) | payer BC, SELFPAY ==
[2024-11-07 15:26] VITALS: PULSE 88; O2SAT 99
--- NOTE | 2024-11-07 15:26 | AM.OFFVISNUR ---
Vital Signs 11/07/24 15:26 Position Sitting Pulse 88 Pulse Source Pulse Oximeter Pulse Oximetry (%) 99 Oxygen Delivery Method Room Air Intake Visit Reasons: Injection Allergies No Known Allergies Allergy (Verified 10/09/23 09:05) Nursing Note Nakul is present for 4 week OUD visit and Sublocade injection. 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 Reports needing bridge due to injection being delayed for a few days. Says that he prefers the injection because of the freedom that it gives for travel to other countries and other conveniences.Follow up appointment made in 4 weeks. Office Meds Sublocade 300 mg/1.5 mL solution,extended release subcutaneous syringe Performing Provider: Mia Rivers MD Performing Location: [facility] Administered by: Lianet Stanley RN on 11/07/24 15:27 Dose Route Admin Location Dispensed Lot Number Expiration Date [employer] Installer 300 mg subcut LLQ 1.5 mL [id number] 09/02/25 [address]-8 [employer]. Comments: Pt here for 4 week OUD follow up and injection. No previous issue with past injections, tolerated injection well. Pt educated on S/S of infection and urged to call [facility] with any questions or concerns. PT verbalized understanding. Assessment & Plan Assessment & Plan Orders: Orders AMB Buprenorphine Injection Today F11.21 - Opioid dependence, in remission Medications: New Sublocade ER (buprenorphine) 300 mg (1.5 mL) subcut ONCE 1.5 mL 0RF NS F11.21 - Opioid dependence, in remission Coding
== END 2024-11-07 15:42 | disposition home or self-care (01) ==
LOC: HO.HCC 15:06
DX: F11.21 Opioid dependence, in remission (principal)

== ENCOUNTER → 2024-11-07 15:06 | Outpatient (BNVA) | payer BC, SELFPAY | DX: F11.21 Opioid dependence, in remission (principal) | CPT/HCPCS: 96372; Q9992 ==

== ENCOUNTER 2024-12-05 14:59 | Outpatient (AMB) | payer BC, SELFPAY ==
--- NOTE | 2024-12-05 15:18 | AM.OFFVISNUR ---
Vital Signs 12/05/24 15:19 Pulse 67 Pulse Source Pulse Oximeter Pulse Oximetry (%) 98 Oxygen Delivery Method Room Air Intake Visit Reasons: Injection Allergies No Known Allergies Allergy (Verified 10/09/23 09:05) Nursing Note Nakul is here for 4 week OUD check in and Sublocade 300 mg injection. Nakul is alert and oriented x 3 and presents with appropriate affect. Nakul reports stability in recovery with no negative symptoms to report. TW asked him if there was a specific reason that he had stayed on his current dose due to the typical course of dose reduction to 100 mg after two doses of 300 mg to arrive at a therapeutic steady state. Nakul reported that he was unsure why that had happened and did definately want to step down to 100 mg dose. Will discuss with provider. Follow-up appointment made in 4 weeks for next injection. Office Meds Sublocade 300 mg/1.5 mL solution,extended release subcutaneous syringe Performing Provider: Mia Rivers MD Performing Location: [facility] Administered by: Lianet Stanley RN on 12/05/24 15:37 Dose Route Admin Location Dispensed Lot Number Expiration Date [facility] Black Top Raker 300 mg subcut RLQ 1.5 mL [id number] 09/02/25 [address]-1 [employer] Total Dispensed Waste 1.5 mL 0 % Comments: Patient is here for 4 week OUD check-in and Sublocade injection. 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 Pt reports no issues with previous injections. Educated on signs and symptoms of infection and encouraged patient to follow up with the [facility] if any issues or questions arise. Pt verbalized understanding. Assessment & Plan Assessment & Plan Orders: Orders AMB Buprenorphine Injection Today F11.21 - Opioid dependence, in remission Coding
[2024-12-05 15:19] VITALS: PULSE 67; O2SAT 98
== END 2024-12-05 15:45 | disposition home or self-care (01) ==
LOC: HO.HCC 14:59
DX: F11.21 Opioid dependence, in remission (principal)

== ENCOUNTER → 2024-12-05 14:59 | Outpatient (BNVA) | payer BC, SELFPAY | DX: F11.21 Opioid dependence, in remission (principal) | CPT/HCPCS: 96372; Q9992 ==

== ENCOUNTER 2025-01-02 09:37 | Outpatient (AMB) | payer BC, SELFPAY ==
--- NOTE | 2025-01-02 09:50 | AM.OFFVISNUR ---
Vital Signs 01/02/25 09:51 Height 6 ft 4 in Weight 116.12 kg BMI 31.2 BP 126/78 Pulse 72 Pulse Oximetry (%) 95 Intake Visit Reasons: Injection Allergies No Known Allergies Allergy (Verified 01/02/25 09:52) Nursing Note Nakul is here for his 4 week Sublocade injection. He is alert, oriented, calm, cooperative and presents with appropriate affect. Nakul reports that he is going out to [place] for a few days to help family with the care of his sister. Dose reduction from 300 mg to 100 mg discussed; Nakul will verify what he has available for oral bridge if needed and update the office if a refill is needed. Follow up scheduled in 4 weeks for next injection. Office Meds Sublocade 100 mg/0.5 mL solution,extended release subcutaneous syringe Performing Provider: Mia Rivers MD Performing Location: [facility] Administered by: Lianet Stanley RN on 01/02/25 10:05 Dose Route Admin Location Dispensed Lot Number Expiration Date [facility] Java Portal Developer 100 mg subcut LUQ 0.5 mL [id number] 09/02/25 [address]-8 [employer] Total Dispensed Waste 0.5 mL 0 % Comments: Pt here for 100mg Sublocade injection, denies complications with previous injections and tolerated injection well. Pt educated on signs and symptoms of infection at the injection site, urged to call [facility] with any questions or concerns. Follow up appointment made in 4 weeks for next injection. Assessment & Plan Assessment & Plan Orders: Orders AMB Buprenorphine Injection Today F11.21 - Opioid dependence, in remission Coding
[2025-01-02 09:51] VITALS: BP 126/78; PULSE 72; O2SAT 95; BMI 31.2
== END 2025-01-02 11:26 | disposition home or self-care (01) ==
LOC: HO.HCC 09:38
DX: F11.21 Opioid dependence, in remission (principal)

== ENCOUNTER → 2025-01-02 09:37 | Outpatient (BNVA) | payer BC, SELFPAY | DX: F11.21 Opioid dependence, in remission (principal) | CPT/HCPCS: 96372; Q9991 ==

== ENCOUNTER 2025-01-29 16:29 | Outpatient (AMB) | payer BC, SELFPAY ==
--- NOTE | 2025-01-29 16:49 | AM.OFFVISNUR ---
Intake Visit Reasons: Injection Allergies No Known Allergies Allergy (Verified 01/02/25 09:52) Nursing Note Nakul is here for his 4 week Sublocade injection. He is alert, oriented, calm, cooperative and presents with appropriate affect. Nakul reports that his trip to [place] to help family with the care of his sister went well. Dose reduction from 300 mg to 100 mg seems to be going well, he experienced mild symptoms during the night the last few nights but tolerable, did not need to bridge. He is content for the time being with 100 mg. Follow up scheduled in 4 weeks for next injection. Office Meds Sublocade 100 mg/0.5 mL solution,extended release subcutaneous syringe Performing Provider: Mia Rivers MD Performing Location: [facility] Administered by: Lianet Stanley RN on 01/29/25 17:03 Dose Route Admin Location Dispensed Lot Number Expiration Date [facility] Art Glass Setter 100 mg subcut RLQ 0.5 mL [id number] 09/02/25 [address]-8 [employer] Total Dispensed Waste 0.5 mL 0 % Comments: Pt is present for 100 mg Sublocade injection, pt denies complications with previous injections and tolerated injection well. Pt educated on signs and symptoms of infection at the injection site, urged to call [facility] with any questions or concerns. Follow up appointment made in 4 weeks for next injection. Assessment & Plan Assessment & Plan Orders: Orders AMB Buprenorphine Injection Today F11.21 - Opioid dependence, in remission Coding
[2025-01-29 17:23] VITALS: BP 150/90; PULSE 73; O2SAT 99; BMI 31.5
--- NOTE | 2025-01-29 17:23 | AM.OFFVISNUR ---
Vital Signs 01/29/25 17:23 Height 6 ft 4 in Weight 117.48 kg BMI 31.5 BP 150/90 H Blood Pressure Location Lt brachial Position Sitting Pulse 73 Pulse Source Pulse Oximeter Pulse Oximetry (%) 99 Oxygen Delivery Method Room Air Intake Visit Reasons: Injection Allergies No Known Allergies Allergy (Verified 01/29/25 17:24) Office Meds Sublocade 100 mg/0.5 mL solution,extended release subcutaneous syringe Performing Provider: Mia Rivers MD Performing Location: [facility] Administered by: Lianet Stanley RN on 01/29/25 17:03 Dose Route Admin Location Dispensed Lot Number Expiration Date [facility] Tapper Balance Wheel Screw Hole 100 mg subcut RLQ 0.5 mL [id number] 09/02/25 [address]-0 [employer]. Total Dispensed Waste 0.5 mL 0 % Comments: Pt is present for 100 mg Sublocade injection, pt denies complications with previous injections and tolerated injection well. Pt educated on signs and symptoms of infection at the injection site, urged to call [facility] with any questions or concerns. Follow up appointment made in 4 weeks for next injection. Assessment & Plan Assessment & Plan Orders: Orders AMB Buprenorphine Injection Today F11.21 - Opioid dependence, in remission Coding
== END 2025-01-29 17:02 | disposition home or self-care (01) ==
LOC: HO.HCC 16:29
DX: F11.21 Opioid dependence, in remission (principal)

== ENCOUNTER → 2025-01-29 16:29 | Outpatient (BNVA) | payer BC, SELFPAY | DX: F11.21 Opioid dependence, in remission (principal) | CPT/HCPCS: 96372; Q9991 ==

== ENCOUNTER 2025-02-27 14:56 | Outpatient (AMB) | payer BC, SELFPAY ==
--- NOTE | 2025-02-27 15:12 | AM.OFFVISNUR ---
Vital Signs 02/27/25 15:40 BP 126/86 Pulse 78 Pulse Oximetry (%) 97 Intake Visit Reasons: injection Allergies No Known Allergies Allergy (Verified 02/27/25 15:41) Nursing Note Nakul is here for his 4 week Sublocade injection. He is alert, oriented, calm, cooperative and presents with appropriate affect. No negative effects noted, no bridging required. He reports working many hours but all is well. Nakul was excited to report that he and his are expecting their first child in the spring (October). Sublocade wallet card given. Follow up scheduled in 4 weeks for next injection. Office Meds Sublocade 100 mg/0.5 mL solution,extended release subcutaneous syringe Performing Provider: Mia Rivers MD Performing Location: [facility] Administered by: Lianet Stanley RN on 02/27/25 15:35 Dose Route Admin Location Dispensed Lot Number Expiration Date [facility] Senior Accounts Payable Specialist 100 mg subcut LLQ 0.5 mL [id number] 09/02/25 [address]-9 [employer] Total Dispensed Waste 0.5 mL 0 % Comments: Pt is present for 100 mg Sublocade injection, pt denies complications with previous injections and tolerated injection well. Pt educated on signs and symptoms of infection at the injection site, urged to call [facility] with any questions or concerns. Follow up appointment made in 4 weeks for next injection. Assessment & Plan Assessment & Plan Orders: Orders AMB Buprenorphine Injection Today F11.21 - Opioid dependence, in remission Coding
[2025-02-27 15:40] VITALS: BP 126/86; PULSE 78; O2SAT 97
== END 2025-02-27 15:31 | disposition home or self-care (01) ==
LOC: HO.HCC 14:56
PROVIDERS: Visit Provider Internal Medicine
DX: F11.21 Opioid dependence, in remission (principal)

== ENCOUNTER → 2025-02-27 14:56 | Outpatient (BNVA) | payer BC, SELFPAY | PROVIDERS: Visit Provider Internal Medicine | DX: F11.21 Opioid dependence, in remission (principal) | CPT/HCPCS: 96372; Q9991 ==

== ENCOUNTER 2025-03-25 11:07 | Outpatient (AMB) | payer BC, SELFPAY ==
--- NOTE | 2025-03-25 08:41 | AM.OFFVISNUR ---
Vital Signs 03/25/25 11:19 Height 6 ft 4 in Weight 113.852 kg BMI 30.5 BP 138/78 Pulse 74 Intake Visit Reasons: Injection Allergies No Known Allergies Allergy (Verified 03/25/25 11:20) Nursing Note Nakul is here for his 4 week Sublocade injection. He is alert, oriented, calm, cooperative and presents with appropriate affect. No negative effects noted, no bridging required; doing well besides having a cold. Reports work is going well and is feeling good so far in . Follow up in 4 weeks for next Sublocade injection. Office Meds Sublocade 100 mg/0.5 mL solution,extended release subcutaneous syringe Performing Provider: Mia Rivers MD Performing Location: [facility] Administered by: Lianet Stanley RN on 03/25/25 11:14 Dose Route Admin Location Dispensed Lot Number Expiration Date [facility] Brewery Representative 100 mg subcut LUQ 0.5 mL [id number] [employer] Total Dispensed Waste 0.5 mL 0 % Comments: Pt is present for 100 mg Sublocade injection, pt denies complications with previous injections and tolerated injection well. Pt educated on signs and symptoms of infection at the injection site, urged to call [facility] with any questions or concerns. Follow up appointment made in 4 weeks for next injection. Assessment & Plan Assessment & Plan Orders: Orders AMB Buprenorphine Injection Today F11.21 - Opioid dependence, in remission Coding
[2025-03-25 11:19] VITALS: BP 138/78; PULSE 74; BMI 30.5
== END 2025-03-25 11:46 | disposition home or self-care (01) ==
LOC: HO.HCC 11:07
DX: F11.21 Opioid dependence, in remission (principal)

== ENCOUNTER → 2025-03-25 11:07 | Outpatient (BNVA) | payer BC, SELFPAY | DX: F11.21 Opioid dependence, in remission (principal) | CPT/HCPCS: 96372; Q9991 ==

== ENCOUNTER 2025-05-05 14:57 | Outpatient (AMB) | payer BC, SELFPAY ==
--- NOTE | 2025-05-05 14:38 | AM.OFFVISNUR ---
Vital Signs 05/05/25 15:08 BP 118/70 Pulse 86 Pulse Oximetry (%) 96 Intake Visit Reasons: Injection Allergies No Known Allergies Allergy (Verified 05/05/25 15:08) Nursing Note Nakul is here for his 4 week Sublocade 100 mg injection. He is alert, oriented, calm, cooperative and presents with appropriate affect. Nakul appeared a bit down; he [facility] and had to travel to [place] for the services which interfered with his job. He reported feeling a bit under the weather, realizing that he is past due for his injection. He mentioned some family tension associated with his 's extended family in [place]- 's is going well so far. Nakul agreed to accept a referral for [facility]; will submit a referral. Follow-up in 4 weeks for next injection. Office Meds Sublocade 100 mg/0.5 mL solution,extended release subcutaneous syringe Performing Provider: Mia Rivers MD Performing Location: [facility] Administered by: Lianet Stanley RN on 05/05/25 16:04 Dose Route Admin Location Dispensed Lot Number Expiration Date [facility] Plastic Welding Machine Operator 100 mg subcut RUQ 0.5 mL [id number] 11/02/25 [address]-9 [employer] Total Dispensed Waste 0.5 mL 0 % Comments: Pt is present for 100 mg Sublocade injection, pt denies complications with previous injections and tolerated injection well. Pt educated on signs and symptoms of infection at the injection site, urged to call [facility] with any questions or concerns, pt verbalized understanding. Follow up appointment made in 4 weeks for next injection. Assessment & Plan Assessment & Plan Orders: Orders AMB Buprenorphine Injection Today F11.21 - Opioid dependence, in remission Coding
[2025-05-05 15:08] VITALS: BP 118/70; PULSE 86; O2SAT 96
== END 2025-05-05 15:48 | disposition home or self-care (01) ==
LOC: HO.HCC 14:57
DX: F11.21 Opioid dependence, in remission (principal)

== ENCOUNTER → 2025-05-05 14:57 | Outpatient (BNVA) | payer BC, SELFPAY | DX: F11.21 Opioid dependence, in remission (principal) | CPT/HCPCS: 96372; Q9991 ==